=== PATIENT | female | born 1960 | race Two or more races ===

== ENCOUNTER 2017-03-09 15:51 | Emergency (ER) | payer MEDICAID, OTHER ==
[~2017-03-09] VITALS: Ht 165.1 cm; Wt 66.0 kg
[2017-03-09 18:54] VITALS: BP 124/67
== END 2017-03-09 18:57 | disposition home or self-care (01) ==
LOC: ED 18:25
DX: S83.422A Sprain of lateral collateral ligament of left knee, initial encounter (principal); S83.412A Sprain of medial collateral ligament of left knee, initial encounter; X58.XXXA Exposure to other specified factors, initial encounter; Y93.89 Activity, other specified; Y99.8 Other external cause status; Y92.89 Other specified places as the place of occurrence of the external cause
CPT/HCPCS: 29505; 99284